=== PATIENT | male | born 1960 | race Caucasian/White ===

== ENCOUNTER 2020-08-17 07:50 | Outpatient (CLI) | payer BC ==
--- NOTE | 2020-08-17 09:42 | MRI ---
EXAM: MRI right shoulder PROVIDED CLINICAL HISTORY: Pain COMPARISON: None FINDINGS: There is a full-thickness, near full width tear of the subscapularis from the lesser tuberosity inser tion with retraction proximal to the glenohumeral joint. There is full-thickness, fullwidth disruption of the supraspinatus tendon at the footplate, with retraction to the level of the acromion . The infraspinatus and teres minor tendons appear intact. Intact long head biceps tendon fibers are not identified. There is a moderate-large glenohumeral join t effusion. Signal alteration within the biceps anchor and superior labrum compatible with tear and presumably reflecting site of biceps disruption. No focal glenohumeral articular cartilage defect is apparent. Acromioclavicular joint osteoarthrosis is demonstrated without significant mass effect upon the subja cent supraspinatus. There is muscular volume loss involving the subscapularis without fatty infiltration. Regional marrow and muscular signal appear otherwise normal. IMPRESSION: 1. Massive full-thickness rotator cuff tear as above. 2. Intact long head biceps tendon fibers are not identified. 3. Moderate-large glenohumeral joint effusion. 4. Acromioclavicular joint osteoarthrosis.
== END 2020-08-17 07:51 | disposition home or self-care (01) ==
LOC: SCSMRI 07:50
DX: M75.121 Complete rotator cuff tear or rupture of right shoulder, not specified as traumatic (principal); M25.412 Effusion, left shoulder; M19.012 Primary osteoarthritis, left shoulder